=== PATIENT | male | born 1985 | race Caucasian/White ===

== ENCOUNTER 2017-09-04 14:16 | Emergency (ER) | payer MEDICAID ==
[~2017-09-04] VITALS: Ht 177.8 cm; Wt 100.0 kg
[~2017-09-04 14:16] MED LIST: ASPI-621 PO; CHOL10003 PO; CLON0.5T PO
[2017-09-04] MEDS ORDERED: OXYcodone/APAP 5/325MG TABLET ONE (14:54)
[2017-09-04] MEDS ORDERED: IBUPROFEN 200 MG TABLET ONE (14:54)
[2017-09-04] MEDS ORDERED: OXYcodone/APAP 5/325MG TABLET PO ONE (15:00)
[2017-09-04] MEDS ORDERED: IBUPROFEN 200 MG TABLET PO ONE (15:00)
[2017-09-04] MEDS ORDERED: LIDOCAINE 1%, 10ML INFIL ONE (15:00)
[2017-09-04] MEDS ORDERED: LIDOCAINE-MPF 1%, 2ML ONE (15:04)
[2017-09-04 16:37] VITALS: BP 149/87
== END 2017-09-04 16:39 | disposition home or self-care (01) ==
LOC: ED 16:37
DX: S83.91XA Sprain of unspecified site of right knee, initial encounter (principal); X50.1XXA Overexertion from prolonged static or awkward postures, initial encounter; Y93.89 Activity, other specified; Y92.328 Other athletic field as the place of occurrence of the external cause; Y99.8 Other external cause status
CPT/HCPCS: 20610; 99284